=== PATIENT | male | born 1960 | race Caucasian/White ===

== ENCOUNTER 2016-11-02 14:48 | Outpatient (CLI) | payer MEDICAID | END 2016-11-02 14:49 | disposition home or self-care (01) | DX: M47.816 Spondylosis without myelopathy or radiculopathy, lumbar region (principal); M43.16 Spondylolisthesis, lumbar region ==

== ENCOUNTER 2016-11-29 10:08 | Outpatient (CLI) | payer MEDICAID | END 2016-11-29 10:09 | disposition home or self-care (01) | DX: R60.0 Localized edema (principal); B19.20 Unspecified viral hepatitis C without hepatic coma ==

== ENCOUNTER 2016-12-30 15:11 | Outpatient (CLI) | payer MEDICAID | END 2016-12-30 15:12 | disposition home or self-care (01) | DX: B19.20 Unspecified viral hepatitis C without hepatic coma (principal); K80.20 Calculus of gallbladder without cholecystitis without obstruction; R60.0 Localized edema; F10.10 Alcohol abuse, uncomplicated; N28.1 Cyst of kidney, acquired ==

== ENCOUNTER 2017-09-06 16:17 | Outpatient (CLI) | payer MEDICAID ==
[2017-09-06 17:11] LABS: ALBUMIN 2.7 g/dL (3.2-5.5); ALBUMIN/GLOBULIN RATIO 0.7 (1.0-2.2); ALKALINE PHOSPHATASE 86 IU/L (42-121); ALT ALANINE AMINOTRANSFERASE 50 IU/L (10-60); AST ASPARTATE AMINOTRANSFERASE 84 IU/L (10-42); BILIRUBIN,TOTAL 2.4 mg/dL (0.2-1.0); BUN - BLOOD UREA NITROGEN 12 mg/dL (6-20); CALCIUM 8.5 mg/dL (8.5-10.3); CARBON DIOXIDE - CO2 25 mmol/L (21-32); CHLORIDE 106 mmol/L (101-111); CREATININE 0.6 mg/dL (0.6-1.2); GFR - MDRD 138 (>89); GLUCOSE 129 mg/dL (70-100); LIPASE 68 U/L (22-51); MAGNESIUM 1.8 mg/dL (1.7-2.8); SODIUM 139 mmol/L (135-145); TOTAL PROTEIN 6.8 g/dL (6.7-8.2)
[2017-09-06 17:14] LABS: BASOPHILS % (AUTO) 1.1 %; HGB - HEMOGLOBIN 11.6 g/dL (14.0-18.0); LYMPHOCYTES % (AUTO) 19.8 %; MEAN CORPUSCULAR HEMOGLOBIN 34.7 pg (27.0-31.0); MEAN CORPUSCULAR HGB CONC 34.3 g/dL (32.0-36.0); MEAN CORPUSCULAR VOLUME 101.1 fL (80.0-94.0); MEAN PLATELET VOLUME 8.7 fL (7.4-11.4); MONOCYTES % (AUTO) 21.3 %; NEUTROPHILS % (AUTO) 52.8 %; PLT - PLATELET COUNT 68 10^3/uL (130-450); RED BLOOD COUNT 3.35 10^6/uL (4.70-6.10); RED CELL DISTRIBUTION WIDTH 16.4 % (12.0-15.0); WHITE BLOOD COUNT 2.4 x10^3/uL (4.8-10.8)
[2017-09-06 17:19] LABS: ABNORMAL LYMPHS % (MANUAL) 0 %; BAND NEUTROPHILS % (MANUAL) 0 %
[2017-09-06 17:39] LABS: EOSINOPHILS # (MANUAL) 0.1 10^3/uL (0-0.7); LYMPHOCYTES # (MANUAL) 0.4 10^3/uL (1.5-3.5); LYMPHOCYTES % (MANUAL) 15 %; MONOCYTES # (MANUAL) 0.5 10^3/uL (0.0-1.0); NEUTROPHILS # (MANUAL) 1.4 10^3/uL (1.5-6.6); NEUTROPHILS % (MANUAL) 60 %
[2017-09-06 17:41] LABS: PLATELET MORPHOLOGY NORMAL APPEARANCE (NORMAL)
[2017-09-06 17:42] LABS: DIFFERENTIAL COMMENT MANUAL DIFFERENTIAL; PLATELET ESTIMATE, MANUAL DECREASED (<130,000) (NORMAL)
--- NOTE | 2017-09-07 18:20 | XRAY Report ---
DATE OF SERVICE: 09/06/2017 TWO VIEW CHEST: 09/06/2017 CLINICAL INDICATION: Edema, heart valve replacement. COMPARISON: 06/04/2011 Frontal and lateral views of the chest demonstrate interval changes of cardiac surgery. The cardiac silhouette is mildly enlarged. The lungs demonstrate mild interstitial edema. No focal infiltrate, effusion, or pneumothorax is evident. IMPRESSION: Cardiomegaly and mild interstitial edema. Postoperative changes. TD: 09/07/2017 19:20
== END 2017-09-06 16:18 | disposition home or self-care (01) ==
LOC: DI 16:17
PROVIDERS: ATTEND Family Medicine
DX: R60.0 Localized edema (principal); Z95.2 Presence of prosthetic heart valve; I51.7 Cardiomegaly; J81.1 Chronic pulmonary edema; F10.10 Alcohol abuse, uncomplicated; B19.20 Unspecified viral hepatitis C without hepatic coma
CPT/HCPCS: 36415; 71046; 80053; 80320; 82140; 83690; 83735; 85025

== ENCOUNTER 2017-09-12 11:15 | Outpatient (CLI) | payer MEDICAID | END 2017-09-12 11:30 | disposition home or self-care (01) | LOC: RT.N 11:15 | PROVIDERS: ATTEND Family Medicine | DX: R60.0 Localized edema (principal) ==

== ENCOUNTER 2017-10-09 14:41 | Outpatient (CLI) | payer MEDICAID ==
[2017-10-09 19:05] LABS: BASOPHILS % (AUTO) 1.1 %; EOSINOPHILS # (AUTO) 0.2 10^3/uL (0.0-0.7); EOSINOPHILS % (AUTO) 5.1 %; LYMPHOCYTES # (AUTO) 0.6 10^3/uL (1.5-3.5); LYMPHOCYTES % (AUTO) 14.7 %; MEAN CORPUSCULAR HEMOGLOBIN 34.7 pg (27.0-31.0); MEAN CORPUSCULAR HGB CONC 34.6 g/dL (32.0-36.0); MEAN CORPUSCULAR VOLUME 100.3 fL (80.0-94.0); MEAN PLATELET VOLUME 8.6 fL (7.4-11.4); MONOCYTES # (AUTO) 0.6 10^3/uL (0.0-1.0); MONOCYTES % (AUTO) 15.4 %; NEUTROPHILS # (AUTO) 2.6 10^3/uL (1.5-6.6); NEUTROPHILS % (AUTO) 63.7 %; PLT - PLATELET COUNT 115 10^3/uL (130-450); RED BLOOD COUNT 3.48 10^6/uL (4.70-6.10); RED CELL DISTRIBUTION WIDTH 16.7 % (12.0-15.0)
[2017-10-09 19:45] LABS: ALBUMIN 2.7 g/dL (3.2-5.5); ALBUMIN/GLOBULIN RATIO 0.6 (1.0-2.2); BILIRUBIN,TOTAL 1.5 mg/dL (0.2-1.0); CALCIUM 8.3 mg/dL (8.5-10.3)
== END 2017-10-09 14:42 | disposition home or self-care (01) ==
LOC: LAB.N 14:41
PROVIDERS: ATTEND Family Medicine
DX: K72.91 Hepatic failure, unspecified with coma (principal)
CPT/HCPCS: 36415; 80053; 85025

== ENCOUNTER 2017-12-27 08:18 | Outpatient (CLI) | payer MEDICAID ==
[2017-12-27 08:29] LABS: BASOPHILS % (AUTO) 1.5 %; EOSINOPHILS # (AUTO) 0.1 10^3/uL (0.0-0.7); HGB - HEMOGLOBIN 11.4 g/dL (14.0-18.0); LYMPHOCYTES # (AUTO) 0.5 10^3/uL (1.5-3.5); LYMPHOCYTES % (AUTO) 20.4 %; MEAN CORPUSCULAR HEMOGLOBIN 36.2 pg (27.0-31.0); MEAN CORPUSCULAR HGB CONC 36.3 g/dL (32.0-36.0); MEAN CORPUSCULAR VOLUME 99.7 fL (80.0-94.0); MEAN PLATELET VOLUME 7.4 fL (7.4-11.4); MONOCYTES # (AUTO) 0.5 10^3/uL (0.0-1.0); MONOCYTES % (AUTO) 23.4 %; NEUTROPHILS # (AUTO) 1.2 10^3/uL (1.5-6.6); NEUTROPHILS % (AUTO) 49.7 %; PLT - PLATELET COUNT 73 10^3/uL (130-450); RED BLOOD COUNT 3.16 10^6/uL (4.70-6.10); RED CELL DISTRIBUTION WIDTH 16.5 % (12.0-15.0); WHITE BLOOD COUNT 2.3 x10^3/uL (4.8-10.8)
[2017-12-27 08:49] LABS: ALBUMIN 2.8 g/dL (3.2-5.5); ALBUMIN/GLOBULIN RATIO 0.7 (1.0-2.2); BILIRUBIN,TOTAL 2.7 mg/dL (0.2-1.0); CALCIUM 8.3 mg/dL (8.5-10.3); CREATININE 0.9 mg/dL (0.6-1.2); TOTAL PROTEIN 6.8 g/dL (6.7-8.2)
[2017-12-27 09:19] LABS: PLATELET ESTIMATE, MANUAL DECREASED (<130,000) (NORMAL)
[2017-12-27 09:21] LABS: PLATELET MORPHOLOGY NORMAL APPEARANCE (NORMAL)
== END 2017-12-27 08:19 | disposition home or self-care (01) ==
LOC: LAB 08:18
PROVIDERS: ATTEND Family Medicine
DX: D53.9 Nutritional anemia, unspecified (principal); K72.91 Hepatic failure, unspecified with coma; B19.20 Unspecified viral hepatitis C without hepatic coma
CPT/HCPCS: 36415; 80053; 82140; 83690; 85025

== ENCOUNTER 2018-02-08 15:25 | Outpatient (CLI) | payer MEDICAID ==
[2018-02-08 19:16] LABS: BASOPHILS % (AUTO) 1.4 %; EOSINOPHILS # (AUTO) 0.1 10^3/uL (0.0-0.7); EOSINOPHILS % (AUTO) 3.4 %; HGB - HEMOGLOBIN 12.8 g/dL (14.0-18.0); LYMPHOCYTES # (AUTO) 0.7 10^3/uL (1.5-3.5); LYMPHOCYTES % (AUTO) 25.6 %; MEAN CORPUSCULAR HEMOGLOBIN 36.4 pg (27.0-31.0); MEAN CORPUSCULAR HGB CONC 35.3 g/dL (32.0-36.0); MEAN CORPUSCULAR VOLUME 103.1 fL (80.0-94.0); MEAN PLATELET VOLUME 8.4 fL (7.4-11.4); MONOCYTES # (AUTO) 0.4 10^3/uL (0.0-1.0); MONOCYTES % (AUTO) 16.8 %; NEUTROPHILS # (AUTO) 1.4 10^3/uL (1.5-6.6); NEUTROPHILS % (AUTO) 52.8 %; PLT - PLATELET COUNT 81 10^3/uL (130-450); RED BLOOD COUNT 3.51 10^6/uL (4.70-6.10); RED CELL DISTRIBUTION WIDTH 16.5 % (12.0-15.0); WHITE BLOOD COUNT 2.7 x10^3/uL (4.8-10.8)
[2018-02-08 19:36] LABS: ALBUMIN 2.7 g/dL (3.2-5.5); ALBUMIN/GLOBULIN RATIO 0.6 (1.0-2.2); BILIRUBIN,TOTAL 2.4 mg/dL (0.2-1.0); CALCIUM 8.6 mg/dL (8.5-10.3); CREATININE 0.8 mg/dL (0.6-1.2); TOTAL PROTEIN 7.3 g/dL (6.7-8.2)
[2018-02-08 20:08] LABS: PLATELET ESTIMATE, MANUAL DECREASED (<130,000) (NORMAL); PLATELET MORPHOLOGY NORMAL APPEARANCE (NORMAL); RBC MORPHOLOGY (MULTIPLE) NORMAL APPEARANCE (NORMAL)
== END 2018-02-08 15:26 | disposition home or self-care (01) ==
LOC: LAB.N 15:25
PROVIDERS: ATTEND Family Medicine
DX: D53.9 Nutritional anemia, unspecified (principal); K72.91 Hepatic failure, unspecified with coma; R60.0 Localized edema
CPT/HCPCS: 36415; 80053; 85025

== ENCOUNTER 2018-03-21 13:28 | Outpatient (CLI) | payer MEDICAID | END 2018-03-21 13:29 | disposition critical access hospital (66) | LOC: EMS 13:28 | PROVIDERS: ATTEND Surgery | DX: R41.0 Disorientation, unspecified (principal); M54.5 Low back pain; R53.1 Weakness | CPT/HCPCS: A0425; A0427; A0999 ==

== ENCOUNTER 2018-03-21 13:59 | Emergency (ER) | payer MEDICAID ==
[2018-03-21] MEDS ORDERED: CEFEPIME 2 GM in SODIUM CHLORIDE 0.9% MINIBAG 100 ML IV STA (14:05)
[2018-03-21] MEDS ORDERED: metroNIDAZOLE 500 MG/100 ML 500 MG/100 ML BAG IV STA (14:05)
[2018-03-21] MEDS ORDERED: VANCOMYCIN INJ 1 GM in SODIUM CHLORIDE 0.9% 500 ML IV STA (14:05)
[2018-03-21] MEDS ORDERED: LACTATED RINGERS 3,000 ML IV STA (14:09)
[2018-03-21 14:37] LABS: BASOPHILS % (AUTO) 0.1 %; EOSINOPHILS % (AUTO) 0.1 %; HGB - HEMOGLOBIN 12.1 g/dL (14.0-18.0); LYMPHOCYTES # (AUTO) 0.3 10^3/uL (1.5-3.5); LYMPHOCYTES % (AUTO) 4.3 %; MEAN CORPUSCULAR HEMOGLOBIN 37.8 pg (27.0-31.0); MEAN CORPUSCULAR HGB CONC 35.5 g/dL (32.0-36.0); MEAN CORPUSCULAR VOLUME 106.7 fL (80.0-94.0); MEAN PLATELET VOLUME 8.5 fL (7.4-11.4); MONOCYTES # (AUTO) 0.7 10^3/uL (0.0-1.0); MONOCYTES % (AUTO) 10.5 %; PLT - PLATELET COUNT 72 10^3/uL (130-450); RED BLOOD COUNT 3.21 10^6/uL (4.70-6.10); RED CELL DISTRIBUTION WIDTH 16.6 % (12.0-15.0); WHITE BLOOD COUNT 7.1 x10^3/uL (4.8-10.8)
[2018-03-21] MEDS ORDERED: IOPAMIDOL-300 100 ML VIAL ONE ×2 (14:37→14:54)
[2018-03-21 14:41] LABS: INR 1.5 (0.8-1.2); PT - PROTHROMBIN TIME 16.9 secs (9.9-12.6)
[2018-03-21 14:46] LABS: ALBUMIN 2.6 g/dL (3.2-5.5); ALBUMIN/GLOBULIN RATIO 0.7 (1.0-2.2); BILIRUBIN,TOTAL 5.4 mg/dL (0.2-1.0); CALCIUM 8.5 mg/dL (8.5-10.3); CREATININE 2.1 mg/dL (0.6-1.2); TOTAL PROTEIN 6.2 g/dL (6.7-8.2)
[2018-03-21 14:52] LABS: RBC MORPHOLOGY (MULTIPLE) 3+ ANISOCYTOSIS (NORMAL)
[2018-03-21] MEDS ORDERED: NALOXONE 0.4 MG/ML VIAL IVP STA (15:02)
[2018-03-21] MEDS ORDERED: DEXTROSE 50% ABBOJECT 25 GM/50 ML SYRINGE IVP STA (15:08)
[2018-03-21] MEDS ORDERED: SUCCINYLCHOLINE 200 MG/10 ML VIAL IVP STA (15:14)
[2018-03-21] MEDS ORDERED: ETOMIDATE 40 MG/20 ML VIAL IVP STA (15:14)
[2018-03-21] MEDS ORDERED: VANCOMYCIN INJ 2.5 GM in SODIUM CHLORIDE 0.9% 500 ML IV STA (15:14)
[2018-03-21] MEDS ORDERED: DEXTROSE 50% ABBOJECT 25 GM/50 ML SYRINGE ONE (15:17)
[2018-03-21] MEDS ORDERED: VANCOMYCIN INJ 2 GM in SODIUM CHLORIDE 0.9% 500 ML IV STA (15:17)
--- NOTE | 2018-03-21 15:23 | CT Report ---
Procedure Date: 03/21/2018 Accession Number: [id number] / [id number] Procedure: CT - Chest Angio (AORTA) CPT Code: FULL RESULT: EXAM: CTA CHEST EXAM DATE: 03/21/2018 03:06 PM. CLINICAL HISTORY: Tachy. Hypotensive. Pulsate mass.. COMPARISON: CHEST 2 VIEW 09/06/2017. TECHNIQUE: Prior to and following intravenous administration of 100 cc of Isovue-300, multiplanar 3D/MIP reconstruction of the thoracic aorta was performed. In accordance with CT protocol optimization, one or more of the following dose reduction techniques were utilized for this exam: automated exposure control, adjustment of mA and/or KV based on patient size, or use of iterative reconstructive technique. FINDINGS: Vascular Structures: Normal. No aneurysm, dissection, or significant atherosclerotic disease of the thoracic aorta. The visualized pulmonary arteries are within normal limits. Lungs/Pleura: No consolidation, nodules, or edema. No effusions or pneumothorax. Mediastinum: Pretracheal and precarinal lymph nodes noted 1.4 cm short axis. Mitral valve replacement. No cardiac enlargement. Other: Large left thyroid nodule with internal calcification noted. IMPRESSION: 1. No aortic aneurysm or dissection. 2. Mild mediastinal lymphadenopathy. 3. No cardiomegaly. 4. Clear lungs. 5. Large left thyroid nodule. Consider ultrasound evaluation RADIA
[2018-03-21] MEDS ORDERED: ETOMIDATE 40 MG/20 ML VIAL IVP ONE (15:29)
[2018-03-21] MEDS ORDERED: SUCCINYLCHOLINE 200 MG/10 ML VIAL ONE (15:30)
--- NOTE | 2018-03-21 15:32 | CT Report ---
Procedure Date: 03/21/2018 Accession Number: [id number] / [id number] Procedure: CT - Abdomen/Pelvis Angio CPT Code: FULL RESULT: EXAM: CT ANGIOGRAM ABDOMEN AND PELVIS WITH CONTRAST EXAM DATE: 03/21/2018 03:06 PM. CLINICAL HISTORY: Tachy. Hypotensive. Pulsatile abdomen. COMPARISONS: None. TECHNIQUE: Routine helical CT angiogram imaging was performed through the abdomen and pelvis in the arterial phase. IV contrast: 100 cc of Isovue 300. Enteric contrast: No. Reconstructions: Coronal, sagittal, and 3D MIP reconstructions. In accordance with CT protocol optimization, one or more of the following dose reduction techniques were utilized for this exam: automated exposure control, adjustment of mA and/or KV based on patient size, or use of iterative reconstructive technique. FINDINGS: Vasculature: No aneurysm, dissection, or significant atherosclerotic disease of the abdominal aorta and iliac arteries. A large recanalized umbilical vein is noted, as well as large right superior and inferior epigastric venous shunts. The visualized mesenteric and solid organ vascular structures are within normal limits. Abdominal Solid Organs: The spleen is enlarged. Multiple cholelithiasis without duct dilatation. The liver, spleen, pancreas, adrenal glands, and kidneys are normal in size and demonstrate no masses or abnormal enhancement. Peritoneal Cavity: Mild diverticulosis. No free fluid, free air, or acute inflammatory process. Pelvic Organs: Normal. The bladder and visualized pelvic organs are within normal limits. Bones: No significant abnormality. Other: Prominent retroperitoneal and inguinal lymph nodes noted. IMPRESSION: 1. No aortic aneurysm or dissection. 2. Large recanalized umbilical vein as well as large right superior and inferior epigastric vein shunts. 3. Splenomegaly. 4. Mild diverticulosis without diverticulitis. 5. Prominent retroperitoneal and inguinal lymph nodes noted RADIA
--- NOTE | 2018-03-21 15:38 | ED Physician Documentation ---
History of Present Illness - Stated complaint Stated Complaint: AMS - Chief complaint Chief Complaint: Neuro - Additonal information Additional information: hx from pt and EMS who spoke with SO and records fxed from PMD 58 male pmhx hep C, bacterial endocarditis, porcine MVR, prior EtOH abuse, dependent edema, ddd, CHF, hepatic encephalopathy, varices meds spironolactone, lisionopril, flexeril, lactulose, mag, K, lasix NKDA full code per pt BIBA for fever AMS hypotension per report he was in usual state of health this AM felt ill and laid down developed AMS EMS was called and found pt with fever 104, SBP 70, hypoxic, FSBS 71 upon arrival pt slow to respond but able to answer questions he denies any fall denies TAPIA denies neck pain denies CP debies cough c/o abd pain "oh my guts" denies urinary sx denies ext pain nurse spoke to SO who says pt is not compliant with his lactulose Review of Systems Constitutional: reports: Fever. denies: Chills Throat: denies: Sore throat Cardiac: denies: Chest pain / pressure Respiratory: reports: Dyspnea. denies: Cough GI: reports: Abdominal Pain. denies: Nausea, Vomiting, Diarrhea : denies: Now EGA Musculoskeletal: denies: Neck pain, Back pain Neurologic: reports: Generalized weakness. denies: Headache, Head injury Endocrine: reports: Easy bruising / bleeding Immunocompromised: denies: Immunocompromised PD PAST MEDICAL HISTORY - Present Medications Home Medications: Ambulatory Orders Medication Instructions Recorded Confirmed Calcium Carbonate [Tums (Calcium 500 mg PO DAILY 03/21/18 03/21/18 Carbonate 500mg)] Lactulose [Constulose] 20 g PO TID 03/21/18 03/21/18 Lisinopril [Lisinopril] 20 mg PO DAILY 03/21/18 03/21/18 Magnesium Oxide 500 mg PO DAILY 03/21/18 03/21/18 Multivitamin [Theragran] 1 each PO DAILY 03/21/18 03/21/18 Potassium Chloride 20 meq PO BID 03/21/18 03/21/18 Spironolactone [Spironolactone] 25 mg PO DAILY 03/21/18 03/21/18 - Allergies Allergies/Adverse Reactions: Allergies Allergy/AdvReac Type Severity Reaction Status Date / Time Unable to Assess Allergy Verified 03/21/18 14:10 PD ED PE NORMAL - Vitals Vital signs reviewed: Yes (tachy febrile hypoxic) - General General: Other (alert awake answering questions appropriately if slowly) - HEENT HEENT: Atraumatic, PERRL - Neck Neck: Supple, no meningeal sign - Cardiac Cardiac: No: RRR (tachy) - Respiratory Respiratory: Other (dec darron) - Abdomen Abdomen: Other (pulsatile abd mass, mod diffuse TTP s guarding or rebound, no distension or wave to suggest ascites) - Derm Derm: Other (pale, not notably jaundiced) - Neuro Neuro: Other (alert answers questions can move all ext) Results - Vitals Vitals: Vital Signs - 24 hr 03/21/18 03/21/18 03/21/18 14:03 14:55 15:10 Temperature 38.6 C H Heart Rate 130 H 115 H 116 H Respiratory 20 26 H Rate Blood Pressure 128/62 61/29 L 82/40 L O2 Saturation 90 L 82 L 99 03/21/18 03/21/18 03/21/18 15:15 15:20 15:30 Temperature Heart Rate 114 H 113 H 115 H Respiratory Rate Blood Pressure 87/37 L 70/43 L 83/38 L O2 Saturation 100 100 99 03/21/18 03/21/18 03/21/18 15:45 15:50 15:55 Temperature Heart Rate 119 H 119 H 121 H Respiratory 18 Rate Blood Pressure 106/54 L 106/54 L 120/49 L O2 Saturation 99 100 03/21/18 03/21/18 03/21/18 16:00 16:20 16:46 Temperature 100.5 C H Heart Rate 126 H 135 H 137 H Respiratory 16 Rate Blood Pressure 133/51 H 155/60 H 148/67 H O2 Saturation 98 03/21/18 03/21/18 03/21/18 17:19 17:20 17:23 Temperature Heart Rate 133 H 131 H 131 H Respiratory 16 16 Rate Blood Pressure 111/53 L 100/50 L O2 Saturation 97 94 03/21/18 03/21/18 03/21/18 17:34 17:38 17:48 Temperature Heart Rate 130 H 129 H 126 H Respiratory 15 16 16 Rate Blood Pressure 89/51 L 90/50 L 88/47 L O2 Saturation 93 94 93 03/21/18 03/21/18 03/21/18 17:50 17:56 18:01 Temperature Heart Rate 125 H 126 H 125 H Respiratory 18 16 16 Rate Blood Pressure 84/48 L 85/47 L 90/45 L O2 Saturation 94 94 94 03/21/18 03/21/18 03/21/18 18:18 18:36 18:39 Temperature Heart Rate 122 H 121 H 121 H Respiratory 17 16 16 Rate Blood Pressure 87/49 L 85/56 L 94/50 L O2 Saturation 94 95 95 03/21/18 03/21/18 03/21/18 18:44 19:10 19:13 Temperature Heart Rate 121 H 120 H 120 H Respiratory 16 16 Rate Blood Pressure 91/50 L 71/37 L 95/48 L O2 Saturation 95 96 03/21/18 03/21/18 19:15 19:18 Temperature Heart Rate 121 H 122 H Respiratory Rate Blood Pressure 101/52 L O2 Saturation Oxygen O2 Source Mechanical ventilator Oxygen Flow Rate 2 - EKG (time done) 1413 Rate: Rate (enter#) (128) Rhythm: Sinus tachycardia Lindsey: Normal Ischemia: Non specific changes 1621 Rate: Rate (enter#) (135) Rhythm: Other (junctional tachycardia) Ischemia: Other (ST depression inferior and ant) Other comments: Other comments (worse than initial EKG, added on trop) - Labs Labs: Laboratory Tests 03/21/18 03/21/18 03/21/18 14:15 14:15 14:15 WBC 7.1 RBC 3.21 L Hgb 12.1 L Hct 34.2 L MCV 106.7 H MCH 37.8 H MCHC 35.5 RDW 16.6 H Plt Count 72 L MPV 8.5 Neut # (Auto) 6.0 Lymph # (Auto) 0.3 L Sully # (Auto) 0.7 Eos # (Auto) 0.0 Baso # (Auto) 0.0 Absolute Nucleated RBC 0.00 Nucleated RBC % 0.0 Manual Slide Review Indicated RBC Morph Micro Appear 3+ ANISOCYTOSIS PT 16.9 H INR 1.5 H APTT 34.2 H Bld Gas Analysis Time Sample Site ABG pH ABG pCO2 ABG pO2 ABG HCO3 ABG Total CO2 ABG O2 Saturation ABG Oximetry Spot Check ABG Base Excess Dann Test Respiration Rate O2 Delivery Device Vent Mode FiO2 Tidal Volume PEEP Pressure Support Vent Sodium 137 Potassium 3.8 Chloride 105 Carbon Dioxide 22 Anion Gap 10.0 BUN 20 Creatinine 2.1 H Estimated GFR (MDRD) 32 L Glucose 68 L Lactic Acid Calcium 8.5 Total Bilirubin 5.4 H AST 104 H ALT 52 Alkaline Phosphatase 62 Ammonia Troponin I Total Protein 6.2 L Albumin 2.6 L Globulin 3.6 Albumin/Globulin Ratio 0.7 L Lipase 40 Urine Color Urine Clarity Urine pH Ur Specific [place] Urine Protein Urine Glucose (UA) Urine Ketones Urine Occult Blood Urine Nitrite Urine Bilirubin Urine Urobilinogen Ur Leukocyte Esterase Urine RBC Urine WBC Urine WBC Clumps Ur Squamous Epith Cells Urine Bacteria Urine Culture Comments Urine Opiates Screen Ur Oxycodone Screen Urine Methadone Screen Ur Propoxyphene Screen Ur Barbiturates Screen Ur Tricyclics Screen Ur Phencyclidine Scrn Ur Amphetamine Screen U Methamphetamines Scrn U Benzodiazepines Scrn Urine Cocaine Screen U Cannabinoids Screen Ethyl Alcohol 03/21/18 03/21/18 03/21/18 14:15 14:15 14:15 WBC RBC Hgb Hct MCV MCH MCHC RDW Plt Count MPV Neut # (Auto) Lymph # (Auto) Sully # (Auto) Eos # (Auto) Baso # (Auto) Absolute Nucleated RBC Nucleated RBC % Manual Slide Review RBC Morph Micro Appear PT INR APTT Bld Gas Analysis Time Sample Site ABG pH ABG pCO2 ABG pO2 ABG HCO3 ABG Total CO2 ABG O2 Saturation ABG Oximetry Spot Check ABG Base Excess Dann Test Respiration Rate O2 Delivery Device Vent Mode FiO2 Tidal Volume PEEP Pressure Support Vent Sodium Potassium Chloride Carbon Dioxide Anion Gap BUN Creatinine Estimated GFR (MDRD) Glucose Lactic Acid 4.2 H* Calcium Total Bilirubin AST ALT Alkaline Phosphatase Ammonia 37.4 H Troponin I Total Protein Albumin Globulin Albumin/Globulin Ratio Lipase Urine Color Urine Clarity Urine pH Ur Specific [place] Urine Protein Urine Glucose (UA) Urine Ketones Urine Occult Blood Urine Nitrite Urine Bilirubin Urine Urobilinogen Ur Leukocyte Esterase Urine RBC Urine WBC Urine WBC Clumps Ur Squamous Epith Cells Urine Bacteria Urine Culture Comments Urine Opiates Screen Ur Oxycodone Screen Urine Methadone Screen Ur Propoxyphene Screen Ur Barbiturates Screen Ur Tricyclics Screen Ur Phencyclidine Scrn Ur Amphetamine Screen U Methamphetamines Scrn U Benzodiazepines Scrn Urine Cocaine Screen U Cannabinoids Screen Ethyl Alcohol < 5.0 03/21/18 03/21/18 03/21/18 16:49 16:49 17:07 WBC RBC Hgb Hct MCV MCH MCHC RDW Plt Count MPV Neut # (Auto) Lymph # (Auto) Sully # (Auto) Eos # (Auto) Baso # (Auto) Absolute Nucleated RBC Nucleated RBC % Manual Slide Review RBC Morph Micro Appear PT INR APTT Bld Gas Analysis Time 1716 Sample Site LEFT RADIAL ABG pH 7.18 L* ABG pCO2 53 H ABG pO2 148 H ABG HCO3 19.4 L ABG Total CO2 21.0 ABG O2 Saturation 98 ABG Oximetry Spot Check 98 ABG Base Excess -9.2 L Dann Test POSITIVE Respiration Rate 20 O2 Delivery Device VENTILATOR Vent Mode SIMV FiO2 100.00 Tidal Volume 450 PEEP 5 Pressure Support Vent 10 Sodium Potassium Chloride Carbon Dioxide Anion Gap BUN Creatinine Estimated GFR (MDRD) Glucose Lactic Acid Calcium Total Bilirubin AST ALT Alkaline Phosphatase Ammonia Troponin I Total Protein Albumin Globulin Albumin/Globulin Ratio Lipase Urine Color YELLOW Urine Clarity CLOUDY Urine pH 8.0 H Ur Specific [place] 1.010 Urine Protein 100 H Urine Glucose (UA) 100 H Urine Ketones NEGATIVE Urine Occult Blood MODERATE H Urine Nitrite NEGATIVE Urine Bilirubin NEGATIVE Urine Urobilinogen 0.2 (NORMAL) Ur Leukocyte Esterase NEGATIVE Urine RBC 11-25 H Urine WBC 11-25 H Urine WBC Clumps PRESENT Ur Squamous Epith Cells RARE Squamous Urine Bacteria Many H Urine Culture Comments INDICATED Urine Opiates Screen NEGATIVE Ur Oxycodone Screen NEGATIVE Urine Methadone Screen NEGATIVE Ur Propoxyphene Screen NEGATIVE Ur Barbiturates Screen NEGATIVE Ur Tricyclics Screen NEGATIVE Ur Phencyclidine Scrn NEGATIVE Ur Amphetamine Screen POSITIVE H U Methamphetamines Scrn POSITIVE H U Benzodiazepines Scrn NEGATIVE Urine Cocaine Screen NEGATIVE U Cannabinoids Screen NEGATIVE Ethyl Alcohol 03/21/18 03/21/18 17:38 17:57 WBC RBC Hgb Hct MCV MCH MCHC RDW Plt Count MPV Neut # (Auto) Lymph # (Auto) Sully # (Auto) Eos # (Auto) Baso # (Auto) Absolute Nucleated RBC Nucleated RBC % Manual Slide Review RBC Morph Micro Appear PT INR APTT Bld Gas Analysis Time Sample Site ABG pH ABG pCO2 ABG pO2 ABG HCO3 ABG Total CO2 ABG O2 Saturation ABG Oximetry Spot Check ABG Base Excess Dann Test Respiration Rate O2 Delivery Device Vent Mode FiO2 Tidal Volume PEEP Pressure Support Vent Sodium Potassium Chloride Carbon Dioxide Anion Gap BUN Creatinine Estimated GFR (MDRD) Glucose Lactic Acid 4.1 H* Calcium Total Bilirubin AST ALT Alkaline Phosphatase Ammonia Troponin I 0.14 Total Protein Albumin Globulin Albumin/Globulin Ratio Lipase Urine Color Urine Clarity Urine pH Ur Specific [place] Urine Protein Urine Glucose (UA) Urine Ketones Urine Occult Blood Urine Nitrite Urine Bilirubin Urine Urobilinogen Ur Leukocyte Esterase Urine RBC Urine WBC Urine WBC Clumps Ur Squamous Epith Cells Urine Bacteria Urine Culture Comments Urine Opiates Screen Ur Oxycodone Screen Urine Methadone Screen Ur Propoxyphene Screen Ur Barbiturates Screen Ur Tricyclics Screen Ur Phencyclidine Scrn Ur Amphetamine Screen U Methamphetamines Scrn U Benzodiazepines Scrn Urine Cocaine Screen U Cannabinoids Screen Ethyl Alcohol - Rads (name of study) CT AP angio Radiology: See rad report (no acute, large umbilcal vein, no ascites, diverticulosis, diffuse adenopathy, gallstones with nl ducts, no sign acute gloria) CTA chest Radiology: See rad report (MVR, mild lymphadenopathy) CXR Radiology: See rad report (post ET - ETY 2 cm above maya, cardiomegaly, pulm edema) Procedures - Intubation Provider: Emergency physician Medications: Etomidate, Succinylcholine Blade: Seth Tube: Size-enter number (7.5), Cuffed, Marked at teeth-enter cm (24) Confirmation: Direct visualization, Bilateral breath sounds, No abdominal breath sound, End tidal CO2, Pulse ox, Chest xray Complications: Other (none) PD MEDICAL DECISION MAKING - ED course ED course: pt with a hx of endocarditis to ER with abrupt onset fever weakness, hypoxia, hypotension, AMS was speaking and answering questions upon arrival denies headache and neck stiffness CT chest no pna or septic pulm emboli has abd pain but CTAP no acute process and no ascites to tap UA pending but urine looks clear consider LP but pt specifically told me he has no TAPIA or neck pain and his INR is elevated and his plt count is low so feel risk outweighs benefit was aggressively txed for sepsis with 3 L NW and cefipime/vanco/flagyl has two large bore IV was briefly on pressors levophed but able to be weaned off quickly as ab and IVF worked [facility] hospitalist Dr Ellsworth to ER to eval pt and she is also concerned about bacteremia and endocarditis - she spoke to sole stainer at [facility] Dr Flex [place] who accepts pt is transfer feel pt pt has been stabilized as best possibly in [facility] ER but has high likelihood of decompensation again and should be transferred by [facility] pt responded to IVF then BP dropped again started on levophed and improved and was able to be weaned off started to become more hypoxic and have some apneic episodes so intubated - post CXR showing developing CHF then BP low again and so restarted pressors started to prep for central line with anesthesia but [facility] arrived and states they will transfer stat and they are OK with his two large bore IV for the short flight addendum - UA came back + for infection and tox + for meth - could be uroseptic , also could be bacteremic if IVDA - Critical Care Time(min): 60 Time Includes: Direct patient care, Review records, Reassess patient, Document care, Coordinate care, Medical consult Data interpretation: See progress note Procedures excluded from critical care time: Intubation - Sepsis Event Vital Signs: Vital Signs - 24 hr 03/21/18 03/21/18 03/21/18 14:03 14:55 15:10 Temperature 38.6 C H Heart Rate 130 H 115 H 116 H Respiratory 20 26 H Rate Blood Pressure 128/62 61/29 L 82/40 L O2 Saturation 90 L 82 L 99 03/21/18 03/21/18 03/21/18 15:15 15:20 15:30 Temperature Heart Rate 114 H 113 H 115 H Respiratory Rate Blood Pressure 87/37 L 70/43 L 83/38 L O2 Saturation 100 100 99 03/21/18 03/21/18 03/21/18 15:45 15:50 15:55 Temperature Heart Rate 119 H 119 H 121 H Respiratory 18 Rate Blood Pressure 106/54 L 106/54 L 120/49 L O2 Saturation 99 100 03/21/18 03/21/18 03/21/18 16:00 16:20 16:46 Temperature 100.5 C H Heart Rate 126 H 135 H 137 H Respiratory 16 Rate Blood Pressure 133/51 H 155/60 H 148/67 H O2 Saturation 98 03/21/18 03/21/18 03/21/18 17:19 17:20 17:23 Temperature Heart Rate 133 H 131 H 131 H Respiratory 16 16 Rate Blood Pressure 111/53 L 100/50 L O2 Saturation 97 94 03/21/18 03/21/18 03/21/18 17:34 17:38 17:48 Temperature Heart Rate 130 H 129 H 126 H Respiratory 15 16 16 Rate Blood Pressure 89/51 L 90/50 L 88/47 L O2 Saturation 93 94 93 03/21/18 03/21/18 03/21/18 17:50 17:56 18:01 Temperature Heart Rate 125 H 126 H 125 H Respiratory 18 16 16 Rate Blood Pressure 84/48 L 85/47 L 90/45 L O2 Saturation 94 94 94 03/21/18 03/21/18 03/21/18 18:18 18:36 18:39 Temperature Heart Rate 122 H 121 H 121 H Respiratory 17 16 16 Rate Blood Pressure 87/49 L 85/56 L 94/50 L O2 Saturation 94 95 95 03/21/18 03/21/18 03/21/18 18:44 19:10 19:13 Temperature Heart Rate 121 H 120 H 120 H Respiratory 16 16 Rate Blood Pressure 91/50 L 71/37 L 95/48 L O2 Saturation 95 96 03/21/18 03/21/18 19:15 19:18 Temperature Heart Rate 121 H 122 H Respiratory Rate Blood Pressure 101/52 L O2 Saturation Oxygen O2 Source Mechanical ventilator Oxygen Flow Rate 2 Departure - Departure Disposition: 02 Transfer Acute Care Hosp Clinical Impression: Abnormal EKG Sepsis Qualifiers: Sepsis type: sepsis due to unspecified organism Qualified Code(s): A41.9 - Sepsis, unspecified organism UTI (urinary tract infection) Qualifiers: Urinary tract infection type: site unspecified Hematuria presence: with hematuria Qualified Code(s): N39.0 - Urinary tract infection, site not specified ; R31.9 - Hematuria, unspecified; R31.9 - Hematuria, unspecified Condition: Critical Discharge Date/Time: 03/21/18 19:50
[2018-03-21] MEDS ORDERED: VECURONIUM 10 MG VIAL IVP STA (15:42)
[2018-03-21] MEDS ORDERED: MIDAZOLAM 2 MG/2 ML VIAL IVP STA ×3 (15:42→17:41)
[2018-03-21] MEDS ORDERED: MIDAZOLAM 2 MG/2 ML VIAL ONE (15:54)
--- NOTE | 2018-03-21 16:00 | XRAY Report ---
Procedure Date: 03/21/2018 Accession Number: [id number] / [id number] Procedure: XR - Chest 1 View X-Ray CPT Code: 26804 FULL RESULT: EXAM: CHEST RADIOGRAPHY EXAM DATE: 03/21/2018 03:45 PM. CLINICAL HISTORY: Post intubation. COMPARISON: CHEST 2 VIEW 09/06/2017. TECHNIQUE: 1 view. FINDINGS: Lungs/Pleura: No focal opacities evident. No pleural effusion. No pneumothorax. Mediastinum: Large heart with venous congestion. Other: ET tube about 2 cm from the maya. IMPRESSION: 1. ET tube about 2 cm from the maya. 2. Cardiomegaly with venous congestion. RADIA
[2018-03-21] MEDS ORDERED: WATER FOR INJECTION,STERILE 10 ML ONE (16:03)
[2018-03-21] MEDS ORDERED: IOPAMIDOL-300 100 ML VIAL IVP ONE (16:34)
[2018-03-21 16:52] LABS: MUDS CUTOFF CONCENTRATIONS CUTOFF CONC BELOW:
[2018-03-21 16:57] LABS: BILIRUBIN,URINE NEGATIVE (NEGATIVE); GLUCOSE, URINE (UA) 100 mg/dL (NEGATIVE); KETONES,URINE (UA) NEGATIVE (NEGATIVE); LEUKOCYTE ESTERASE, URINE NEGATIVE (NEGATIVE); NITRITE,URINE NEGATIVE (NEGATIVE); OCCULT BLOOD,URINE MODERATE (NEGATIVE); PROTEIN,URINE 100 mg/dL (NEGATIVE); UROBILINOGEN,URINE 0.2 (NORMAL) E.U./dL (NORMAL)
[2018-03-21 17:21] LABS: BACTERIA,URINE Many /HPF (None Seen); CLARITY,URINE CLOUDY (CLEAR); SQUAMOUS EPITHELIAL CELL,UR RARE Squamous (<= Few); WBC CLUMPS,URINE PRESENT
[2018-03-21 17:24] LABS: ABG PH 7.18 (7.35-7.45)
[2018-03-21 17:25] LABS: ABG BASE EXCESS -9.2 mmol/L (-2.0-3.0); ABG HCO3 19.4 mmol/L (22.0-26.0); ABG OXYGEN SATURATION 98 % (94-98); ABG PCO2 53 mmHg (34-45); ABG PO2 148 mmHg (80-100); ALLEN TEST POSITIVE
[2018-03-21 17:30] LABS: COCAINE SCREEN URINE NEGATIVE (NEGATIVE)
[2018-03-21 17:31] LABS: AMPHETAMINE SCREEN,URINE POSITIVE (NEGATIVE); BENZODIAZEPINES SCREEN, URINE NEGATIVE (NEGATIVE); METHADONE SCREEN, URINE NEGATIVE (NEGATIVE); METHAMPHETAMINES SCREEN, URINE POSITIVE (NEGATIVE); OPIATE SCREEN, URINE NEGATIVE (NEGATIVE); OXYCODONE SCREEN, URINE NEGATIVE (NEGATIVE); PROPOXYPHENE SCREEN, URINE NEGATIVE (NEGATIVE); TRICYCLIC ANTIDEPRESSANT,URINE NEGATIVE (NEGATIVE)
[2018-03-21] MEDS ORDERED: SODIUM CHLORIDE 0.9% 1,000 ML IV ONE (17:32)
[2018-03-21 19:18] VITALS: BP 101/52
== END 2018-03-21 19:50 | disposition short-term general hospital (02) ==
LOC: EDUNIT# → ED 13:59
DX: A41.9 Sepsis, unspecified organism (principal); N39.0 Urinary tract infection, site not specified; R31.9 Hematuria, unspecified; I47.1 Supraventricular tachycardia; I95.9 Hypotension, unspecified; F10.11 Alcohol abuse, in remission; Z95.4 Presence of other heart-valve replacement; Z86.79 Personal history of other diseases of the circulatory system; R09.02 Hypoxemia; I50.9 Heart failure, unspecified; K72.90 Hepatic failure, unspecified without coma; Z91.14 Patient's other noncompliance with medication regimen; B19.20 Unspecified viral hepatitis C without hepatic coma
CPT/HCPCS: 31500; 36415; 36600; 51703; 71045; 71275; 74174; 80053; 80306; 80320; 81001; 82140; 82803; 83605; 83690; 84484; 85025; 85610; 85730; 87040; 87086; 93005; 94002; 96365; 96366; 96367; 96368; 96375; 96376; 99291; J0330; J3370; J7120; Q9967; 99285

== ENCOUNTER 2018-04-05 11:34 | Outpatient (CLI) | payer MEDICAID ==
[2018-04-05 18:46] LABS: EOSINOPHILS # (AUTO) 0.1 10^3/uL (0.0-0.7); EOSINOPHILS % (AUTO) 1.9 %; HGB - HEMOGLOBIN 11.9 g/dL (14.0-18.0); LYMPHOCYTES # (AUTO) 0.5 10^3/uL (1.5-3.5); LYMPHOCYTES % (AUTO) 15.2 %; MEAN CORPUSCULAR VOLUME 108.5 fL (80.0-94.0); MEAN PLATELET VOLUME 9.5 fL (7.4-11.4); MONOCYTES # (AUTO) 0.6 10^3/uL (0.0-1.0); MONOCYTES % (AUTO) 16.8 %; NEUTROPHILS # (AUTO) 2.4 10^3/uL (1.5-6.6); NEUTROPHILS % (AUTO) 65.1 %; PLT - PLATELET COUNT 62 10^3/uL (130-450); RED BLOOD COUNT 3.13 10^6/uL (4.70-6.10); RED CELL DISTRIBUTION WIDTH 17.7 % (12.0-15.0); WHITE BLOOD COUNT 3.6 x10^3/uL (4.8-10.8)
[2018-04-05 19:05] LABS: ALBUMIN 2.2 g/dL (3.2-5.5); ALBUMIN/GLOBULIN RATIO 0.5 (1.0-2.2); BILIRUBIN,TOTAL 3.5 mg/dL (0.2-1.0); CALCIUM 8.8 mg/dL (8.5-10.3); CREATININE 0.7 mg/dL (0.6-1.2)
== END 2018-04-05 11:35 | disposition home or self-care (01) ==
LOC: LAB.N 11:34
PROVIDERS: ATTEND Family Medicine
DX: R60.0 Localized edema (principal)
CPT/HCPCS: 36415; 80053; 85025; 85651

== ENCOUNTER 2018-06-06 10:47 | Outpatient (CLI) | payer MEDICAID ==
[2018-06-06 12:56] LABS: BASOPHILS % (AUTO) 1.3 %; EOSINOPHILS # (AUTO) 0.2 10^3/uL (0.0-0.7); EOSINOPHILS % (AUTO) 5.8 %; HGB - HEMOGLOBIN 12.5 g/dL (14.0-18.0); LYMPHOCYTES # (AUTO) 0.6 10^3/uL (1.5-3.5); LYMPHOCYTES % (AUTO) 23.8 %; MEAN CORPUSCULAR HEMOGLOBIN 37.9 pg (27.0-31.0); MEAN CORPUSCULAR HGB CONC 35.6 g/dL (32.0-36.0); MEAN CORPUSCULAR VOLUME 106.4 fL (80.0-94.0); MEAN PLATELET VOLUME 8.6 fL (7.4-11.4); MONOCYTES # (AUTO) 0.4 10^3/uL (0.0-1.0); MONOCYTES % (AUTO) 16.3 %; NEUTROPHILS # (AUTO) 1.4 10^3/uL (1.5-6.6); NEUTROPHILS % (AUTO) 52.8 %; PLT - PLATELET COUNT 98 10^3/uL (130-450); RED CELL DISTRIBUTION WIDTH 17.6 % (12.0-15.0); WHITE BLOOD COUNT 2.6 x10^3/uL (4.8-10.8)
[2018-06-06 12:57] LABS: ALBUMIN 2.8 g/dL (3.2-5.5); ALBUMIN/GLOBULIN RATIO 0.7 (1.0-2.2); BILIRUBIN,TOTAL 3.3 mg/dL (0.2-1.0); CALCIUM 8.6 mg/dL (8.5-10.3); CREATININE 0.7 mg/dL (0.6-1.2); MAGNESIUM 1.8 mg/dL (1.7-2.8); TOTAL PROTEIN 6.6 g/dL (6.7-8.2)
[2018-06-06 13:58] LABS: RBC MORPHOLOGY (MULTIPLE) 2+ ANISOCYTOSIS (NORMAL)
== END 2018-06-06 10:48 | disposition home or self-care (01) ==
LOC: LAB.N 10:47
PROVIDERS: ATTEND Family Medicine
DX: R60.0 Localized edema (principal); B19.20 Unspecified viral hepatitis C without hepatic coma; I50.9 Heart failure, unspecified
CPT/HCPCS: 36415; 80053; 83735; 85025

== ENCOUNTER 2018-10-11 08:00 | Outpatient (CLI) | payer MEDICAID | END 2018-10-11 23:59 | disposition home or self-care (01) | LOC: LAB.N 08:00 | PROVIDERS: ATTEND Physician Assistant | DX: Z51.81 Encounter for therapeutic drug level monitoring (principal) | CPT/HCPCS: 85610 ==

== ENCOUNTER 2018-10-18 12:10 | Outpatient (CLI) | payer MEDICAID | END 2018-10-18 23:59 | disposition home or self-care (01) | LOC: LAB.N 12:10 | PROVIDERS: ATTEND Physician Assistant | DX: I48.92 Unspecified atrial flutter (principal) | CPT/HCPCS: 85610 ==

== ENCOUNTER 2018-10-31 12:06 | Outpatient (CLI) | payer MEDICAID | END 2018-10-31 12:07 | disposition home or self-care (01) | LOC: LAB.N 12:06 | PROVIDERS: ATTEND Physician Assistant | DX: I48.92 Unspecified atrial flutter (principal) | CPT/HCPCS: 85610 ==

== ENCOUNTER 2018-11-06 08:00 | Outpatient (CLI) | payer MEDICAID | END 2018-11-06 23:59 | disposition home or self-care (01) | LOC: LAB.N 08:00 | PROVIDERS: ATTEND Physician Assistant | DX: Z51.81 Encounter for therapeutic drug level monitoring (principal) | CPT/HCPCS: 85610 ==

== ENCOUNTER 2018-11-14 08:00 | Outpatient (CLI) | payer MEDICAID | END 2018-11-14 23:59 | disposition home or self-care (01) | LOC: LAB.N 08:00 | PROVIDERS: ATTEND Physician Assistant | DX: Z51.81 Encounter for therapeutic drug level monitoring (principal) | CPT/HCPCS: 85610 ==

== ENCOUNTER 2018-11-21 08:00 | Outpatient (CLI) | payer MEDICAID | END 2018-11-21 23:59 | disposition home or self-care (01) | LOC: LAB.N 08:00 | PROVIDERS: ATTEND Physician Assistant | DX: Z51.81 Encounter for therapeutic drug level monitoring (principal) | CPT/HCPCS: 85610 ==

== ENCOUNTER 2018-11-28 08:00 | Outpatient (CLI) | payer MEDICAID | END 2018-11-28 23:59 | disposition home or self-care (01) | LOC: LAB.R 08:00 | PROVIDERS: ATTEND Nurse Practitioner | DX: I83.209 Varicose veins of unspecified lower extremity with both ulcer of unspecified site and inflammation (principal); L97.909 Non-pressure chronic ulcer of unspecified part of unspecified lower leg with unspecified severity | CPT/HCPCS: 87075; 87077; 87147; 87186; 87205 ==

== ENCOUNTER 2018-11-28 15:17 | Outpatient (CLI) | payer MEDICAID | END 2018-11-28 15:18 | disposition home or self-care (01) | LOC: LAB.N 15:17 | PROVIDERS: ATTEND Physician Assistant | DX: Z51.81 Encounter for therapeutic drug level monitoring (principal) | CPT/HCPCS: 85610 ==

== ENCOUNTER 2018-12-14 08:00 | Outpatient (CLI) | payer MEDICAID ==
[2018-12-14 19:17] LABS: BASOPHILS % (AUTO) 2.2 %; EOSINOPHILS % (AUTO) 6.1 %; HGB - HEMOGLOBIN 11.8 g/dL (14.0-18.0); MEAN CORPUSCULAR HEMOGLOBIN 37.3 pg (27.0-31.0); MEAN CORPUSCULAR HGB CONC 34.5 g/dL (32.0-36.0); MEAN CORPUSCULAR VOLUME 108.2 fL (80.0-94.0); MEAN PLATELET VOLUME 8.9 fL (7.4-11.4); MONOCYTES % (AUTO) 15.1 %; NEUTROPHILS % (AUTO) 53.6 %; PLT - PLATELET COUNT 104 10^3/uL (130-450); RED BLOOD COUNT 3.15 10^6/uL (4.70-6.10); RED CELL DISTRIBUTION WIDTH 16.8 % (12.0-15.0); WHITE BLOOD COUNT 2.8 x10^3/uL (4.8-10.8)
[2018-12-14 19:22] LABS: ABNORMAL LYMPHS % (MANUAL) 0 %; BAND NEUTROPHILS % (MANUAL) 0 %
[2018-12-14 19:28] LABS: ALBUMIN 2.8 g/dL (3.2-5.5); ALBUMIN/GLOBULIN RATIO 0.7 (1.0-2.2); BILIRUBIN,TOTAL 3.5 mg/dL (0.2-1.0); CALCIUM 8.6 mg/dL (8.5-10.3); CREATININE 0.8 mg/dL (0.6-1.2); TOTAL PROTEIN 7.1 g/dL (6.7-8.2)
[2018-12-14 19:44] LABS: BASOPHILS # (MANUAL) 0.1 10^3/uL (0-0.1); BASOPHILS % (MANUAL) 2 %; DIFFERENTIAL COMMENT MANUAL DIFFERENTIAL; EOSINOPHILS # (MANUAL) 0.2 10^3/uL (0-0.7); LYMPHOCYTES # (MANUAL) 0.8 10^3/uL (1.5-3.5); LYMPHOCYTES % (MANUAL) 28 %; MONOCYTES # (MANUAL) 0.4 10^3/uL (0.0-1.0); NEUTROPHILS # (MANUAL) 1.4 10^3/uL (1.5-6.6); NEUTROPHILS % (MANUAL) 50 %; PLATELET ESTIMATE, MANUAL DECREASED (<130,000) (NORMAL); PLATELET MORPHOLOGY NORMAL APPEARANCE (NORMAL)
== END 2018-12-14 23:59 | disposition home or self-care (01) ==
LOC: LAB.N 08:00
PROVIDERS: ATTEND Physician Assistant
DX: C22.0 Liver cell carcinoma (principal); Z51.81 Encounter for therapeutic drug level monitoring
CPT/HCPCS: 36415; 80053; 82105; 85025; 85610

== ENCOUNTER 2018-12-25 15:50 | Outpatient (CLI) | payer MEDICAID ==
--- NOTE | 2018-12-26 11:31 | XRAY Report ---
Reason: R HIP PAIN Procedure Date: 12/25/2018 Accession Number: [id number] / [id number] Procedure: XRN - Hip w/Pelvis 2-3V RT CPT Code: FULL RESULT: EXAM: RIGHT HIP RADIOGRAPHY EXAM DATE: 12/25/2018 04:04 PM. CLINICAL HISTORY: Right hip pain. COMPARISON: None. TECHNIQUE: 2 views. FINDINGS: Bones: The bones are qualitatively osteopenic; this limits evaluation for underlying fractures or masses. No fracture is detected. Joints: There is moderate joint space narrowing of both hip joints right greater than left. No subluxation. Soft Tissues: Normal. No soft tissue swelling. IMPRESSION: Degenerative changes. RADIA
== END 2018-12-25 15:51 | disposition home or self-care (01) ==
LOC: DI.N 15:50
PROVIDERS: ATTEND Physician Assistant Medical
DX: M16.0 Bilateral primary osteoarthritis of hip (principal)

== ENCOUNTER 2019-12-04 18:43 | Outpatient (CLI) | payer MEDICAID | END 2019-12-04 23:59 | disposition short-term general hospital (02) | LOC: EMS 18:43 | PROVIDERS: ATTEND Surgery | DX: M54.5 Low back pain (principal); R60.0 Localized edema | CPT/HCPCS: A0425; A0429 ==

== ENCOUNTER 2020-01-29 09:47 | Outpatient (CLI) | payer MEDICAID ==
--- NOTE | 2020-01-29 15:30 | XRAY Report ---
Reason: CONGESTIVE HEART FAILURE Procedure Date: 01/29/2020 Accession Number: [id number] / [id number] Procedure: WCP - Chest 2 View X-Ray CPT Code: 98081 Final Report FULL RESULT: PROCEDURE: Chest 2 View X-Ray INDICATIONS: CONGESTIVE HEART FAILURE TECHNIQUE: 1 view(s) of the chest. COMPARISON: None. FINDINGS: Surgical changes and devices: Median sternotomy wires. Aortic valve prosthesis. Lungs and pleura: Moderate-sized right and trace left pleural effusions. Increased opacification of the lung bases bilaterally which could represent compressive atelectasis, however pneumonia or aspiration can produce a similar appearance. There is cephalization the pulmonary vasculature and interstitial prominence. No pneumothorax. Mediastinum: Mediastinal contours are normal. Heart is enlarged. Bones and chest wall: No suspicious bony abnormalities. Soft tissues appear unremarkable. IMPRESSION: 1. Cardiomegaly with cephalization of pulmonary vasculature and interstitial prominence compatible CHF. 2. Moderate-sized right and trace left pleural effusions. 3. Bibasilar consolidation which may represent atelectasis, however aspiration or pneumonia can produce a similar appearance. Recommend correlation with clinical and laboratory data. Reviewed by: Monica Salvador MD, PhD on 01/29/2020 3:28 PM PDT Approved by: Monica Salvador MD, PhD on 01/29/2020 3:28 PM PDT Station ID: [id number]
== END 2020-01-29 23:59 | disposition home or self-care (01) ==
LOC: DI.WCP 09:47
PROVIDERS: ATTEND Family Medicine
DX: I50.9 Heart failure, unspecified (principal); R91.8 Other nonspecific abnormal finding of lung field
CPT/HCPCS: 71046

== ENCOUNTER 2020-01-30 08:00 | Outpatient (CLI) | payer MEDICAID ==
[2020-01-30 12:05] LABS: BASOPHILS % (AUTO) 1.6 %; EOSINOPHILS # (AUTO) 0.1 10^3/uL (0.0-0.7); EOSINOPHILS % (AUTO) 4.8 %; HGB - HEMOGLOBIN 10.5 g/dL (14.0-18.0); LYMPHOCYTES # (AUTO) 0.6 10^3/uL (1.5-3.5); LYMPHOCYTES % (AUTO) 22.8 %; MEAN CORPUSCULAR HGB CONC 32.5 g/dL (32.0-36.0); MEAN CORPUSCULAR VOLUME 107.7 fL (80.0-94.0); MEAN PLATELET VOLUME 11.3 fL (7.4-11.4); MONOCYTES # (AUTO) 0.4 10^3/uL (0.0-1.0); MONOCYTES % (AUTO) 17.2 %; NEUTROPHILS # (AUTO) 1.3 10^3/uL (1.5-6.6); NEUTROPHILS % (AUTO) 53.2 %; PLT - PLATELET COUNT 73 10^3/uL (130-450); RED CELL DISTRIBUTION WIDTH 16.4 % (12.0-15.0); WHITE BLOOD COUNT 2.5 x10^3/uL (4.8-10.8)
[2020-01-30 12:39] LABS: CREATININE 0.8 mg/dL (0.6-1.2)
[2020-01-30 13:05] LABS: PLATELET ESTIMATE, MANUAL NORMAL (130-450,000) (NORMAL); PLATELET MORPHOLOGY NORMAL APPEARANCE (NORMAL); RBC MORPHOLOGY (MULTIPLE) NORMAL APPEARANCE (NORMAL)
== END 2020-01-30 23:59 | disposition home or self-care (01) ==
LOC: LAB.WCP 08:00
PROVIDERS: ATTEND Family Medicine
DX: I50.9 Heart failure, unspecified (principal)
CPT/HCPCS: 36415; 80048; 83880; 85025

== ENCOUNTER 2020-04-02 16:09 | Outpatient (CLI) | payer MEDICAID ==
[2020-04-02 18:43] LABS: BASOPHILS # (AUTO) 0.1 10^3/uL (0.0-0.1); BASOPHILS % (AUTO) 1.4 %; EOSINOPHILS # (AUTO) 0.2 10^3/uL (0.0-0.7); EOSINOPHILS % (AUTO) 3.1 %; LYMPHOCYTES # (AUTO) 0.8 10^3/uL (1.5-3.5); LYMPHOCYTES % (AUTO) 15.3 %; MEAN CORPUSCULAR HEMOGLOBIN 34.6 pg (27.0-31.0); MEAN CORPUSCULAR VOLUME 101.6 fL (80.0-94.0); MEAN PLATELET VOLUME 11.1 fL (7.4-11.4); NEUTROPHILS # (AUTO) 2.9 10^3/uL (1.5-6.6); NEUTROPHILS % (AUTO) 59.6 %; PLT - PLATELET COUNT 92 10^3/uL (130-450); RED BLOOD COUNT 3.76 10^6/uL (4.70-6.10); RED CELL DISTRIBUTION WIDTH 18.5 % (12.0-15.0); WHITE BLOOD COUNT 4.9 x10^3/uL (4.8-10.8)
[2020-04-02 19:07] LABS: CALCIUM 8.9 mg/dL (8.5-10.3); CREATININE 0.9 mg/dL (0.6-1.2); MAGNESIUM 1.6 mg/dL (1.7-2.8)
== END 2020-04-02 23:59 | disposition home or self-care (01) ==
LOC: LAB.WCP 16:09
PROVIDERS: ATTEND Family Medicine
DX: I50.9 Heart failure, unspecified (principal)
CPT/HCPCS: 36415; 80048; 83735; 85025

== ENCOUNTER 2020-04-08 15:11 | Outpatient (CLI) | payer MEDICAID ==
[2020-04-08 18:57] LABS: HGB - HEMOGLOBIN 12.7 g/dL (14.0-18.0); MEAN CORPUSCULAR HEMOGLOBIN 33.5 pg (27.0-31.0); MEAN CORPUSCULAR HGB CONC 32.6 g/dL (32.0-36.0); MEAN CORPUSCULAR VOLUME 102.9 fL (80.0-94.0); MEAN PLATELET VOLUME 10.5 fL (7.4-11.4); RED BLOOD COUNT 3.79 10^6/uL (4.70-6.10); RED CELL DISTRIBUTION WIDTH 18.4 % (12.0-15.0); WHITE BLOOD COUNT 3.6 x10^3/uL (4.8-10.8)
[2020-04-08 19:33] LABS: CALCIUM 8.7 mg/dL (8.5-10.3); CREATININE 1.1 mg/dL (0.6-1.2)
== END 2020-04-08 23:59 | disposition home or self-care (01) ==
LOC: LAB.WCP 15:11
PROVIDERS: ATTEND Family Medicine
DX: I50.9 Heart failure, unspecified (principal)
CPT/HCPCS: 36415; 80048; 83880; 85027

== ENCOUNTER 2020-06-29 13:41 | Outpatient (CLI) | payer MEDICAID ==
[2020-06-29 18:07] LABS: CALCIUM 8.8 mg/dL (8.5-10.3); CREATININE 1.3 mg/dL (0.6-1.2)
== END 2020-06-29 23:59 | disposition home or self-care (01) ==
LOC: LAB.WCP 13:41
PROVIDERS: ATTEND Internal Medicine Cardiovascular Disease
DX: I50.32 Chronic diastolic (congestive) heart failure (principal)
CPT/HCPCS: 36415; 80048

== ENCOUNTER 2020-07-29 20:29 | Outpatient (CLI) | payer MEDICAID | END 2020-07-29 20:30 | disposition short-term general hospital (02) | LOC: EMS 20:29 | PROVIDERS: ATTEND Surgery | DX: R41.82 Altered mental status, unspecified (principal) | CPT/HCPCS: A0425; A0429; A0999 ==

== ENCOUNTER 2020-08-15 21:07 | Outpatient (CLI) | payer MEDICAID | END 2020-08-15 21:08 | disposition short-term general hospital (02) | LOC: EMS 21:07 | PROVIDERS: ATTEND Surgery | DX: R53.1 Weakness (principal); R53.83 Other fatigue; R35.0 Frequency of micturition | CPT/HCPCS: A0425; A0427; A0999 ==